=== PATIENT | female | born 1955 | race Caucasian/White ===

== ENCOUNTER 2017-03-24 15:18 | Outpatient (CLI) | payer BC ==
--- NOTE | 2017-03-24 16:38 | ULT ---
PELVIC SONOGRAM TRANSABDOMINAL AND TRANSVAGINAL IMAGING. 03/24/17 FINDINGS: No comparison. Urinary bladder is unremarkable. The uterus has a heterogeneous echotexture measuring up to 5.3 cm in length. Endometrium is 0.4 cm thickness. Calcifications with shadowing are present throughout the no nenlarged uterus. No free fluid is visible. Neither ovary is visualized with transabdominal or transvaginal imaging. No adnexal masses are appare nt. IMPRESSION: Calcifications with moderate fibroid involvement of the uterus. POS: [facility]
== END 2017-03-24 15:19 | disposition home or self-care (01) ==
LOC: ULT 15:18
PROVIDERS: ATTEND Internal Medicine
DX: R10.2 Pelvic and perineal pain (principal); D25.9 Leiomyoma of uterus, unspecified
CPT/HCPCS: 76856